=== PATIENT | female | born 1980 | race Two or more races ===

== ENCOUNTER 2023-07-02 22:15 | Emergency (ER) | payer SELFPAY ==
[~2023-07-02] VITALS: Ht 165.1 cm; Wt 97.7 kg
[2023-07-02 22:54] LABS: Urine Bacteria FEW /hpf (None Seen); Urine Blood 3+ /uL (Negative); Urine Clarity Clear (Clear); Urine Color Yellow (Yellow); Urine Mucus FEW (None Seen); Urine Protein, UAD 1+ (Negative); Urine Specific Gravity 1.034 (1.001-1.035); Urine WBC 3 /hpf (0 - 5)
[2023-07-02 23:11] LABS: Basophils # (auto) 0.1 10 ^3/uL (0-0.2); Basophils % (auto) 0.7 % (0.0-2.0); Eosinophils # (auto) 0.1 10 ^3/uL (0-0.8); Eosinophils % (auto) 0.5 % (0.0-7.0); Hematocrit 42.6 % (36.0-46.0); Hemoglobin 14.5 g/dL (12.2-16.2); Lymphocytes # (auto) 3.6 10 ^3/uL (0.4-5.4); Lymphocytes % (auto) 24.8 % (10.0-50.0); Mean Corpuscular Hemoglobin 29.9 pg (28.0-32.0); Monocytes # (auto) 0.8 10 ^3/uL (0-1.3); Monocytes % (auto) 5.5 % (0.0-12.0); Neutrophils % (auto) 68.5 % (37.0-80.0); Nucleated Red Blood Cells % 0.1 %; Red Blood Cells 4.84 10^6/uL (4.0-5.20); White Blood Cell 14.6 10^3/uL (4.4-10.8)
[2023-07-02 23:24] LABS: Alanine Aminotransferase 29 U/L (7-40); Albumin 4.5 g/dL (3.2-4.8); Alkaline Phosphatase 100 U/L (46-116); Anion Gap 8.3 (5-15); Aspartate Aminotransferase 23 U/L (13-40); BUN/Creatinine Ratio 14.5 (10.0-20.0); Blood Urea Nitrogen 16 mg/dL (9-23); Calcium 9.1 mg/dL (8.7-10.4); Carbon Dioxide 26.7 mmol/L (20-30); Chloride 103 mmol/L (98-107); Glucose 124 mg/dL (74-106); Potassium 3.7 mmol/L (3.5-5.1); Sodium 138 mmol/L (136-145)
[2023-07-02 23:25] LABS: Bilirubin, Total 0.3 mg/dL (0.2-1.0); Total Protein 7.2 g/dL (5.7-8.2)
[2023-07-03] MEDS ORDERED: DOXY1CAP57 PO ×3 (03:37→05:50)
[2023-07-03] MEDS ORDERED: METR-344 PO ×3 (03:37→05:50)
[2023-07-03] MEDS ORDERED: FLUCONAZOLE 100 MG TAB PO ONE (03:45)
[2023-07-03] MEDS ORDERED: AZITHROMYCIN 250 MG TAB PO ONE (03:45)
[2023-07-03] MEDS ORDERED: metroNIDAZOLE 500 MG TAB PO ONE (03:45)
[2023-07-03] MEDS ORDERED: cefTRIAXone SOD 1,000 MG VL IM ONE (03:45)
[2023-07-03 05:53] VITALS: BP 131/81; PULSE 65; RESP 18; TEMP 97.7; O2SAT 96
== END 2023-07-03 05:55 | disposition home or self-care (01) ==
LOC: ER 22:19
DX: N89.8 Other specified noninflammatory disorders of vagina (principal); R10.32 Left lower quadrant pain; D72.829 Elevated white blood cell count, unspecified; N93.9 Abnormal uterine and vaginal bleeding, unspecified
CPT/HCPCS: 36415; 76856; 80053; 81001; 84702; 85025; 86850; 86900; 86901; 96372; 99285; J0696